=== PATIENT | female | born 1990 | race Caucasian/White ===

== ENCOUNTER 2017-05-20 23:40 | Emergency (ER) | payer OTHER ==
[~2017-05-20] VITALS: Ht 170.2 cm; Wt 100.0 kg
[2017-05-21] MEDS ORDERED: NAPROSYN500 MG PO (01:12)
[2017-05-21] MEDS ORDERED: PERCOCET 5/31 TABLET PO (01:12)
[2017-05-21 02:08] VITALS: BP 139/85
== END 2017-05-21 02:08 | disposition home or self-care (01) ==
LOC: EME 23:40
DX: S83.91XA Sprain of unspecified site of right knee, initial encounter (principal); W17.81XA Fall down embankment (hill), initial encounter; Y93.K1 Activity, walking an animal
CPT/HCPCS: 73590; 99281; 99284